=== PATIENT | male | born 1950 | race Caucasian/White ===

== ENCOUNTER 2018-09-26 14:15 | Outpatient (CLI) | payer MEDICARE, MEDICAID | END 2018-09-26 14:16 | disposition home or self-care (01) | LOC: C.MRIC 14:15 ==

== ENCOUNTER 2018-10-03 14:30 | Outpatient (CLI) | payer MEDICARE, MEDICAID | END 2018-10-03 14:31 | disposition home or self-care (01) | LOC: C.MRIC 14:30 | DX: M24.819 Other specific joint derangements of unspecified shoulder, not elsewhere classified (principal) ==